=== PATIENT | male | born 1955 | race Caucasian/White ===

== ENCOUNTER 2024-08-09 23:37 | Inpatient (IN) | payer OTHER, SELFPAY ==
[2024-08-09 20:06] VITALS: BP 105/67
--- NOTE | 2024-08-09 20:08 | ED.GENMED ---
History of Present Illness
General
Chief Complaint: Fall
Source: patient
Exam Limitations: none
Time Seen by Provider: 08/09/24 19:58
Nursing documentation reviewed up to this point in time: agreed with
History of Present Illness
History of Present Illness:
Patient is a 68-year-old female brought by EMS for evaluation. EMS reports the patient was drinking all day and fell. called EMS. Patient however tells me he was drinking vodka yesterday and fell yesterday and that he did not drink
pockets today however EMS stated story.
Patient presented by EMS however does not recall that and tells me that his partner dropped him off
He does report that he fell and he believes he fell in the living room. He complains of right-sided neck pain. EMS stated the patient fell in his kitchen. patient's partner reported the patient was drinking vodka all day and fell in the kitchen
today.
Patient denies any headache. Patient denies any nausea or vomiting.
Patient does report he sometimes gets tremors if he does not drink but he denies any history of alcohol withdrawal seizures.
Past History
Past History
ED Past Medical History: GERD, HTN, Hypercholesterolemia and NIDDM
Social History
Tobacco: Non-smoker
Alcohol: Daily
Drug: None
Personal:
Living: with family
Employment: Not employed
Family History
Family History: Other (Noncontributory)
Phy Exam
General Physical Exam
General Presentation: no apparent distress
General Skin: warm and dry
General Habitus: normal
General Mental: alert
General Hydration: appears well hydrated
Cardiovascular Exam
Cardiovascular Exam: regular rate/rhythm, no murmur and normal peripheral pulses
Pulmonary Exam
Pulmonary Exam: lungs clear and no respiratory distress
Neurological Exam
Neurological Exam: alert and oriented x3
Musculoskeletal Exam
Musculoskeletal Exam: other (+ ecchymosis to left shoulder however full rom no head injury no bony midline neck tenderness )
Skin Exam
Skin Exam: normal color and warm/dry
Psychiatric Exam
Psychiatric Exam: normal mood/affect
Course
Orders/Labs/Results
Orders:
Orders
08/09/24 20:05
Alcohol Urgent
Complete Blood Count/With Diff Urgent
Comprehensive Metabolic Panel Urgent
08/09/24 20:09
CT Head W/o Iv Contrast Urgent
Comment:
Reason For Exam: trauma
08/09/24 20:10
CT Cervical Spine W/o Iv Contr Urgent
Comment:
Reason For Exam: trauma
0.9% Sodium Chloride 1000 ml [Nss] 1,000 ml IV BOLUS
08/09/24 20:14
Shoulder, Left, Trauma CR [CR Shoulder, Trauma - Left] Urgent
Comment:
Reason For Exam: trauma
08/09/24 20:37
Shoulder, Right, Trauma [CR Shoulder, Trauma - Right] Urgent
Comment:
Reason For Exam: trauma
08/09/24 21:13
Lorazepam [Ativan] 0.5 mg IV NOW STA
08/09/24 22:29
Lorazepam [Ativan] 1 mg IV NOW STA
08/09/24 23:00
Flush (0.9% Sodium Chloride) [Flush (Nss)] See Dose Instructions IV PER PROTOCOL
08/09/24 23:02
Bladder Scan As Directed
Follow Bladder Retention/Intermittent Cath Algorithm?: Yes
PRN if no void in __ hours: 6
Frequency: Per Retention Algorithm
If Bladder Scan Result >: 400
then:: Straight cath
Straight Cath As Directed
Frequency: Per Retention Algorithm
Additional Instructions: straight cath as needed per acute urinary retention algorithm for 24 hrs
Additional Instructions: for bladder scan greater than 400 mL
08/09/24 23:08
Admit/Transfer Patient As Directed
Co-Sign Provider:
Level of Care: Inpatient admission
Assign to:: Telemetry
Physician / Group: pelon
Diagnosis: alcohol withdrawal
Reason for Telemetry: Other
Other Reason for Telemetry: alcohol withdrawal
Date to Stop Telemetry: 08/11/24
Time to Stop Telemetry: 11:00
Reason for Hospitalization: alcohol withdrawal
Expected length of stay greater than two midnights?: Yes
ELOS- Estimated Length of Stay in days: 3
I certify the patient meets the requirements for IP care: Yes
PRN Pain Medication Management As Directed
May give lesser potent ordered pain med per pt: Yes
preference::
Protocol:: Medication orders for pain may be administered in a
manner that supports deferring to patient preference
when the pt is:
- Requesting an ordered lesser potent pain medication.
Least to most potent pain medications are defined
as: acetaminophen < NSAID < tramadol < opioids
(morphine, oxycodone, hydromorphone).
- Requesting a lesser dose of the same medication IF
ORDERED.
- Requesting a less intrusive route of administration
if both routes are prescribed by the provider (PO <
IV).
08/09/24 23:10
Code Status As Directed
Resuscitation Status: Full Code
08/10/24 01:14
0.9% Sodium Chloride 1000 ml [Nss] 1,000 ml IV 100 mls/hr
0.9% Sodium Chloride [Nss (Preservative Free)] See Protocol IV PRN PRN
Acetaminophen [Tylenol] 650 mg PO Q4HPRN PRN
Bisacodyl [Dulcolax] 10 mg RECTAL [id number] PRN
Dextrose 50%-Water [Dextrose 50% Syringe] 12.5 grams IV [id number] PRN
Docusate W/Senna [Senokot-S] 1 tablet PO BIDPRN PRN
FOLic ACID [Folvite] 1 mg 0.9% Sodium Chloride 50 ml [Nss] 50 ml IV DAILYPRN
Glucagon [GlucaGen] 1 mg IM PRN PRN
Lorazepam [Ativan] 1 mg IV Q1HPRN PRN
Lorazepam [Ativan] 1 mg PO Q2HPRN PRN
Lorazepam [Ativan] 2 mg IV Q1HPRN PRN
Polyethylene Glycol Powder [Miralax] 17 grams PO DAILYPRN PRN
Thiamine Injection 200 mg IV Q8
08/10/24 01:14
Case Management Consult Once
Case Management Consult: Other
Comment: Substance abuse counseling
DIETARY IP CONSULT Routine
Reason for Consult: Nutrition support, possible refeeding guidelines
Activity As Directed
Activity Level: As Tolerated
Bedside Glucose Monitoring As Directed
Frequency: AC&HS
Additional Instructions:: Change to q6h if pt on TPN, tube feeding or not eating
MSAS SCORE As Directed
MSAS Score 0-4: Repeat MSAS every 2 hours until 0-4 for three consecutive assessments, then every 4 hours x 48
hours.
MSAS Score 5-7: For MILD withdrawl symptoms. Repeat MSAS and RASS every 2 hours
MSAS Score 8-11: For MODERATE withdrawal symptoms. Repeat MSAS and RASS every 1 hour. Consider ICU or IMU
level of care.
MSAS Score > 11: For SEVERE withdrawal symptoms. Repeat MSAS and RASS every 1 hour. Notify provider, consider
ICU level of care.
MSAS Additional Instructions: If no improvement or no decrease in score from severe to moderate within 12
hours, consult psychiatry
MSAS Notify Provider: Notify provider if patient requires more than 10 mg of Lorazepam in eight hour period.
Vital Signs As Directed
Frequency: Per unit guidelines
DX Deep Vein Thrombosis Video Routine
08/10/24 01:45
Phenobarbital Sodium [Phenobarbital] 260 mg 0.9% Sodium Chloride 100 ml [Nss] 100 ml IV ONCE
08/10/24 05:32
Urinalysis Routine
Date Specimen was Collected: 08/10/24
Time Specimen was Collected: 05:28
Urine Drug Abuse Screen Routine
Date Specimen was Collected: 08/10/24
Time Specimen was Collected: 05:28
08/10/24 Breakfast
1800 calorie (15 carb) Diabetic
At Your Request: Limited Participation
Does patient need a safe tray?: No
Occupational Therapy Consult [Ot Eval And Treat] IN AM
Physical Therapy Consult [Pt Eval And Treat] IN AM
Activity Level: As Tolerated
08/10/24 07:14
Alcohol Urgent
B-Hydroxybutyrate Urgent
Basic Metabolic Panel IN AM
Complete Blood Count/No Diff IN AM
Ferritin IN AM
GGTP Urgent
Glycohemoglobin (HgbA1c) IN AM
Iron IN AM
Magnesium Urgent
PTT Urgent
Phosphorus Urgent
Prothrombin Time Urgent
Total Iron Binding IN AM
Vitamin B12 IN AM
08/10/24 07:30
Insulin Aspart Corrective Low [Novolog Flexpen-Low Resistance] See Protocol SC AC
08/10/24 08:00
FOLic ACID [Folvite] 1 mg PO DAILY
Heparin 5,000 units SC Q12
Pantoprazole [Protonix] 40 mg PO DAILY
Phenobarbital Sodium [Phenobarbital] 97.5 mg IV TID
08/10/24 18:00
Rosuvastatin Calcium [Crestor] 10 mg PO QPM
08/11/24 06:42
Basic Metabolic Panel IN AM
Complete Blood Count/No Diff IN AM
08/11/24 11:00
DC Protocol for Telemetry ONCE
08/12/24 08:00
Phenobarbital [Luminal] 64.8 mg PO TID
08/12/24 09:56
Basic Metabolic Panel IN AM
Complete Blood Count/No Diff IN AM
08/13/24 06:00
Complete Blood Count/No Diff IN AM
08/13/24 08:00
Thiamine HCl [Vitamin B1] 100 mg PO BID
08/14/24 08:00
Phenobarbital [Luminal] 32.4 mg PO TID
Abnormal Lab Results
08/09/24
20:05
WBC 2.8 L 10^3/uL
(4.8-10.8)
RBC 3.01 L 10^6/uL
(4.70-6.10)
Hgb 10.1 L g/dL
(13.0-18.0)
Hct 29.1 L %
(39.0-52.0)
MCV 96.7 H fL
(80.0-94.0)
MCH 33.6 H pg
(27.0-31.0)
Plt Count 104 L 10^3/uL
(130-400)
Absolute Lymphs (auto) 0.9 L 10^3/uL
(1.2-3.4)
Monocytes % 13.1 H %
(1.7-9.3)
Carbon Dioxide 21 L mmol/L
(22-30)
Creatinine 1.4 H mg/dL
(0.7-1.3)
Glucose 136 H mg/dl
(70-99)
08/09/24 20:05
08/09/24 20:05
Vital Signs
Initial and Last Documented VS:
Initial Vital Signs
Pulse Resp Pulse Ox
78 15 94
08/09/24 19:58 08/09/24 19:58 08/09/24 19:58
Last Documented Vital Signs
Temp Pulse Resp BP Pulse Ox
97.4 F 76 22 157/101 99
08/12/24 07:00 08/12/24 07:00 08/12/24 07:00 08/12/24 07:00 08/12/24 07:00
Shield Operator consulted with Physician
Shield Operator consulted with physician?: Yes ([place] )
MDM/Problems Addressed
MDM/Problems Addressed:
Patient is a 68 yr old male that was brought by EMS. Patient initially stated that he drank yesterday and fell yesterday however EMS reported that his partner stated patient drank today and fell today. Questionable history .
patient's alcohol was found to be 0 and while here patient started to develop tremors. Patient was given Ativan/ fluids. He tells me again that he drank all day yesterday but did not drink today
patient does complain of right sided neck pain however CT of cervical spine is negative head CT is negative. He presents with bruising to the left shoulder but also complains of pain to the right shoulder both shoulders are negative for fracture.
He has no other complaints of pain and no other injuries on exam.
Patient's white count slightly 2.8 no prior lab results hemoglobin mildly low at 10.1 and platelets mildly low at 104,000. Creatinine minimally elevated 1.4(patient was given fluids)
Pt is willing to speak to [facility] however does not want inpatient.
Pt is stable after ativan in no distress. No complaints of nausea vomiting he is awake alert speaking clearly .
after he speaks with [facility] will have patient walk to the bathroom
And reassess .
care of pt signed out to ED attending
Chronic conditions affecting care:
chronic alcohol use
*Radiology
Radiology exam reviewed: radiology read reviewed
*Pulse Oximetry
Oxygen Mode of Delivery: Room air
Patient hypoxic: no
*Critical Care Note
Total Time (30-74mins, 75-104mins- exclusive of procedures): Not Applicable
ED Attending Note
-
Portions of this chart may have been created with voice recognition software.� Occasional wrong word or��sound alike� substitutions may have occurred due to the inherent limitations of voice recognition software.
Discharge Plan
Departure
Patient Disposition: Admit
Date of Disposition: 08/09/24
Time of Disposition: 22:36
Presentation/result/management discussed w/ accepting MD/DO: Hospitalist
Patient with high blood pressure during this ER visit?: No
Condition: Fair
Covid-19: Not Applicable
Discharge Problem:
Alcohol abuse, Contusion
Interventions
Interventions:
*Risk Screen - Suicide Last Done: 08/10/24 01:20
*General Assessment Last Done: 08/09/24 20:13
*Neglect/Abuse Screening Last Done: 08/09/24 20:13
*ED- Fall Risk Assessment Last Done: 08/09/24 20:13
*ED COVID-19 Vaccine History Last Done: 08/10/24 01:20
*Nursing Disposition Last Done: 08/10/24 00:55
ED-Musculoskeletal Assessment Last Done: 08/09/24 20:00
ED- Neurological Assessment Last Done: 08/09/24 20:00
ED-Skin Assessment Last Done: 08/09/24 20:00
Discharge Date and Time
Discharge Date/Time: 08/10/24 01:10
[2024-08-09 20:12] VITALS: BMI 25.7
[2024-08-09 20:12] LABS: Hematocrit 29.1 % (39.0-52.0); Hemoglobin 10.1 g/dL (13.0-18.0); Mean Corp Hgb Conc. 34.7 g/dL (33.0-37.0); Mean Corpuscular Volume 96.7 fL (80.0-94.0); Nucleated Red Blood Cells % 0 % (-); Platelet Count 104 10^3/uL (130-400); Red Cell Dist. Width 12.9 % (11.5-14.5)
[2024-08-09 20:34] LABS: ALT (SGPT) 37 U/L (0-50); AST (SGOT) 45 U/L (17-59); Albumin 4.0 g/dl (3.5-5.0); Alkaline Phosphatase 90 U/L (38-126); Blood Urea Nitrogen 20 mg/dl (9-20); Calcium 8.9 mg/dl (8.4-10.2); Carbon Dioxide 21 mmol/L (22-30); Chloride 103 mmol/L (98-107); Estimated Creatinine Clearance 47 ml/min; Glucose 136 mg/dl (70-99); Potassium 4.5 mmol/L (3.5-5.1); Sodium 136 mmol/L (135-145); Total Protein 6.4 g/dl (6.3-8.2); eGFR 55.43
[2024-08-09] MEDS: NSS 1000 IV (21:04)
[2024-08-09 21:06] VITALS: BP 115/67
[2024-08-09] MEDS: ATIVAN 0.5 MG IV (21:18)
[2024-08-09 22:00] VITALS: BP 111/82
[2024-08-09 22:11] VITALS: BP 119/96
--- NOTE | 2024-08-09 22:41 | HPS.HSE ---
Addendum entered and electronically signed by Arnold Amaya DO 08/09/24 23:31:
Patient seen and examined independently. Agree with findings and plan as set forth by LUCA Rueda.
Patient is a 68y M with PMH significant for hypertension, DM-II and alcohol use disorder who presents to ED for evaluation s/p fall at home. Patient states that he has been dizzy / unsteady on his feet and had a fall at home two days ago. He
denies head injury. He denies any significant pain. Patient notes that he drinks 1/2 bottle of vodka daily on average. His removed all the alcohol from the house two days ago and he has had none since that time. He complains today of
feeling very anxious and tremulous. He has prior history of withdrawal symptoms. No prior h/o seizures.
Ass:
Alcohol Withdrawal
Alcohol Use Disorder
Fall at Home
Pancytopenia
Benign Hypertension
DM-II
GERD
Plan:
Admit for further evaluation and treatment.
Phenobarbital + MSAS protocol.
IVF support, thiamine, folate, etc.
Follow for clinical improvement.
Continue usual home medications.
Monitor cell counts - consider outpatient Hematology evaluation for pancytopenia.
History of Hep C - apparently self-cleared. (Positive on Abs screening but negative viral load per patient).
Original Note:
Family Physician
-
Family Physician: Katie Hancock
Chief Complaint
-
alcohol abuse
fall
History of Present Illness
68 year old with PMH for GED, HTN, HLD, Type 2 Dm presented to us with fall. patient stated multiple falls due to unsteadiness. patient stated off balance. patient stated his fall was two days ago. denied hitting head on the floor. patient stated he
is dizzy as well. patient has generalized body ache. denied DALTON. denied fever, chills, chest pain, sob. denied abdominal pain,n,v,d. denied hematuria. patient stated, he is having trouble voiding for past few days.
he drinks half a bottle vodka daily. at present he is concern about his shakiness. patient his last alcohol was two days ago.
Medical History
Past Medical History
Past Medical History: Reports Other
Additional Past Medical History:
type 2 DM
alcoholic liiver disease
hepatitis C
Past Surgical History: Reports Other
Additional Past Surgical History:
tonsillectomy
Social History
Tobacco: Former Smoker
Alcohol: Daily
Drug: Marijuana
Personal: Partner
Living: With Family
Family History
Family History: Not pertinent
Allergies / Home Medications
Allergies reflects when Allergies were last updated in [facility].
Home Medications with original date entered in [facility]
Allergy/Medication List:
Allergies
Allergy/AdvReac Type Severity Reaction Status Date / Time
Penicillins Allergy Swelling Verified 08/10/22 20:30
Home Medications
metformin 1,000 mg tablet 1,000 tab PO BID 11/30/20
pantoprazole 40 mg tablet,delayed release 40 mg PO DAILY 11/30/20
rosuvastatin 10 mg tablet 10 mg PO QPM 11/30/20
empagliflozin 10 mg tablet (Jardiance) 10 mg PO DAILY 08/09/24
Review of Systems
-
Constitutional: Reports No Symptoms
EENT: Reports No Symptoms
Respiratory: Reports No Symptoms
Cardiac: Reports No Symptoms
Abdomen/GI: Reports No Symptoms
: Reports No Symptoms
Musculoskeletal: Reports No Symptoms
Skin: Reports No Symptoms
Neurological: Reports Dizzy
Endocrine: Reports No Symptoms
Hematologic/Lymphatic: Reports No Symptoms
Psych: Reports No Symptoms
Physical Exam
Vital Signs
Vital Signs
Temp Pulse Resp BP Pulse Ox
98.6 F 59 15 119/96 96
08/09/24 20:12 08/09/24 22:30 08/09/24 22:30 08/09/24 22:11 08/09/24 21:15
Physical Exam
General: Well Developed, Well Nourished and No Apparent Distress
HEENT: NormoCephalic, Moist mucous membranes and Atraumatic
Respiratory: Clear
Cardiac: S1/S2 and Regular Rhythm; No Murmur or Rub
GI: Soft, Non Tender, Non Distended and Normal Bowel Sounds; No Organomegaly
Rectal: Deferred by Provider
Musculoskeletal: No Clubbing, No Cyanosis and No Edema
Skin: No Rash
Neuro: Nonfocal/grossly intact and Tremors
Laboratory Results
-
08/09/24 20:05
08/09/24 20:05
Laboratory Results
Total Bilirubin 0.9 mg/dl (0.2-1.3) 08/09/24 20:05
AST 45 U/L (17-59) 08/09/24 20:05
ALT 37 U/L (0-50) 08/09/24 20:05
Alkaline Phosphatase 90 U/L (38-126) 08/09/24 20:05
Data Reviewed
-
Diagnostic Radiology: Report Reviewed by me
CT Scan: Report Reviewed by me
Impression/Plan
-
#alcohol use disorder
-protocol initiated
-monitor MSAS score
-initiated phenobarb
#fall likely mechanical
-shoulder x ray with no acute fracture
-cervical spine CT negative
-head CT negative
-PT/OT consulted
#pancytopenia
-wbc 2.8, hgb 10.1, platelet 104
#acute kidney injury likely dehydration
-cr 1.4
-fluids continued
-BMP in am
#type 2 Dm
-sliding scale
-CHO diet
-hold metformin and Jardiance due to ANTONIO
#GERD
-PPI continued
#HLD
-statin continued
#hxt for alcoholic liver disease
#hepatitis C
#DVT Prophylaxis
-heparins q
#CODE status
-full code
[2024-08-09 23:00] VITALS: BP 123/74
[2024-08-09] MEDS: ATIVAN 1 MG IV (23:05)
[2024-08-10] VITALS (9 sets, daily range): BP systolic 107–140; BP diastolic 63–80; PULSE 64; BMI 23.6
--- NOTE | 2024-08-10 00:50 | EDRN ---
[facility] consulted for patient. Evaluation performed with patient via phone and patient does not want outpatient services at this time
[2024-08-10] MEDS: PHENOBARBITAL 104 MG IV (02:11)
[2024-08-10] MEDS: NSS 1000 IV ×3 (02:11→22:59)
[2024-08-10] MEDS: THIAMINE INJECTION 200 MG IV ×4 (02:13→23:00)
[2024-08-10 05:44] LABS: Urine Character Clear (Clear)
[2024-08-10 06:06] LABS: Urine Red Blood Cell None Seen /HPF (0-2); Urine Squamous Cell 0-2 /LPF (Few)
[2024-08-10] MEDS: PROTONIX 40 MG PO (08:09)
[2024-08-10] MEDS: FOLVITE 1 MG PO (08:09)
[2024-08-10] MEDS: HEPARIN 5000 UNITS SC ×2 (08:09→19:21)
[2024-08-10] MEDS: PHENOBARBITAL 97.5 MG IV ×3 (08:11→21:07)
[2024-08-10 08:17] LABS: APTT 32.2 Sec (23.4-35.0); INR 1.05; PT 14.0 Sec (11.4-14.6)
[2024-08-10 08:19] LABS: Glucose - Point of Care 89 mg/dl (70-99)
[2024-08-10 08:29] LABS: Hematocrit 28.9 % (39.0-52.0); Hemoglobin 10.1 g/dL (13.0-18.0); Mean Corp Hgb Conc. 34.9 g/dL (33.0-37.0); Mean Corpuscular Volume 96.7 fL (80.0-94.0); Platelet Count 93 10^3/uL (130-400); Red Cell Dist. Width 13.1 % (11.5-14.5)
[2024-08-10 08:39] LABS: Magnesium 1.4 mg/dl (1.6-2.3)
[2024-08-10 08:40] LABS: Glycohemoglobin (HgbA1c) 5.1 % (4.0-5.6)
[2024-08-10 08:54] LABS: Blood Urea Nitrogen 16 mg/dl (9-20); Calcium 8.3 mg/dl (8.4-10.2); Carbon Dioxide 25 mmol/L (22-30); Chloride 107 mmol/L (98-107); Estimated Creatinine Clearance 64 ml/min; Glucose 82 mg/dl (70-99); Iron 112 ug/dl (49-181); Potassium 3.7 mmol/L (3.5-5.1); Sodium 137 mmol/L (135-145); eGFR > 60.00
[2024-08-10 09:05] LABS: Total Iron Binding Capacity 254 ug/dl (261-462)
[2024-08-10 09:13] LABS: GGTP 207 U/L (15-73)
[2024-08-10 09:33] LABS: Ferritin 148.0 ng/ml (17.9-464.0)
[2024-08-10 09:48] LABS: Vitamin B12 221 pg/ml (239-931)
--- NOTE | 2024-08-10 10:05 | CM ---
wind operations manager reviewed patient's chart and met with patient and patient reports that he lives with his partner in a 1 story home with 21 steps to enter, patient is independent with adl's and ambulation, watch case polisher received a consult for substance
abuse counseling and reviewed with patient however patient has declined a referral to [facility].
PCP: Dr. Hancock
Pharmacy; [facility] in [place]
Plan; Home when stable. No needs.
[2024-08-10] MEDS: MAGNESIUM SULFATE 50 IV (11:03)
[2024-08-10 12:52] LABS: Glucose - Point of Care 97 mg/dl (70-99)
--- NOTE | 2024-08-10 14:52 | W.PN.HOSP.TC ---
Today's Communication/Plan
-
Alcohol withdrawal protocol
Assessment / Plan
Assessment / Plan
68-year-old with a fall, dizziness and unsteady gait. He drinks half a bottle of vodka daily
X-ray of the shoulder-no fracture or dislocation
CT of the C-spine-no evidence of posttraumatic abnormality. Vacuum disc phenomenon at C5-C6 and C6-C7.. Disc osteophyte complexes/arthrosis
Head CT-no acute intracranial abnormality. Chronic small vessel disease
Awake and alert
Aware that he is here for his 'drinking problem'
Cardiovascular system S1-S2 appreciated
Chest clear to auscultation
Abdomen soft and nontender
# Alcohol abuse/alcohol withdrawal/alcohol use disorder
Fall at home likely related to above or alcoholic neuropathy, acute kidney injury
Continue phenobarbital cut back on the course, MSAS 2
Thiamine replacement
MSAS protocol with Ativan as needed
Does not want rehab.
Declined [facility].
# Acute kidney injury-better with IV fluids
# Hypomagnesemia-replace IV
# Vitamin B 2 deficiency-replace described contributing to pancytopenia
# Diabetes--Hold Jardiance, metformin, Continue Accu-Cheks and sliding scale coverage
# Hyperlipidemia-continue statin
# Pancytopenia likely secondary to alcohol abuse. This could be contributing to pancytopenia. If not improving needs hematology evaluation as outpatient
# GERD-continue PPI
# History of hepatitis C-self cleared per patient?
# Marijuana use
# Ex-smoker
# DVT prophylaxis-subcutaneous heparin
# Full code
Discussed with nursing
No number for family or lithography contact worker on the chart
Part of this note was created using voice recognition system. Occasional wrong word or��sound alike� substitutions may have inadvertently occurred due to the inherent limitations of voice recognition software. If noted kindly bring it to my
attention for correction.
Anticipated Discharge: 24 - 48 hours
Subjective/Interval History
-
Date of Service: August 10, 2024
Objective Data
-
Labs:
Laboratory Results
08/10/24
07:14
WBC 2.4 L*
Hgb 10.1 L
Hct 28.9 L
Plt Count 93 L
PT 14.0
INR 1.05
APTT 32.2
Sodium 137
Potassium 3.7
Chloride 107
Carbon Dioxide 25
BUN 16
Creatinine 1.1
Glucose 82
Calcium 8.3 L
Vital Signs:
Vital Signs
Temp Pulse Resp BP Pulse Ox
97.8 F 70 18 107/63 99
08/10/24 11:45 08/10/24 11:45 08/10/24 11:45 08/10/24 11:45 08/10/24 11:45
I&O
08/09/24 08/10/24 08/11/24
06:59 06:59 06:59
Output Total 1075 / 1075
Balance -1075 / -1075
[2024-08-10] MEDS: CYANOCOBALAMIN 1000 MCG IM (15:21)
[2024-08-10 16:30] LABS: Glucose - Point of Care 92 mg/dl (70-99)
[2024-08-10] MEDS: CRESTOR 10 MG PO (17:17)
[2024-08-10 21:52] LABS: Glucose - Point of Care 119 mg/dl (70-99)
[2024-08-11 02:58] VITALS: BP 129/79
[2024-08-11 07:12] LABS: Hematocrit 31.4 % (39.0-52.0); Hemoglobin 11.0 g/dL (13.0-18.0); Mean Corp Hgb Conc. 35.0 g/dL (33.0-37.0); Mean Corpuscular Volume 95.2 fL (80.0-94.0); Platelet Count 105 10^3/uL (130-400); Red Cell Dist. Width 12.7 % (11.5-14.5)
[2024-08-11 07:36] LABS: Blood Urea Nitrogen 13 mg/dl (9-20); Calcium 8.1 mg/dl (8.4-10.2); Carbon Dioxide 24 mmol/L (22-30); Chloride 109 mmol/L (98-107); Estimated Creatinine Clearance 100 ml/min; Glucose 84 mg/dl (70-99); Magnesium 1.6 mg/dl (1.6-2.3); Potassium 4.5 mmol/L (3.5-5.1); Sodium 139 mmol/L (135-145); eGFR > 60.00
[2024-08-11 08:19] LABS: Glucose - Point of Care 93 mg/dl (70-99)
[2024-08-11 08:25] VITALS: BP 128/86
[2024-08-11] MEDS: NSS 1000 IV (09:16)
[2024-08-11] MEDS: PROTONIX 40 MG PO (09:17)
[2024-08-11] MEDS: HEPARIN 5000 UNITS SC ×2 (09:17→21:44)
[2024-08-11] MEDS: LUMINAL 64.8 MG PO ×3 (09:18→21:44)
[2024-08-11] MEDS: THIAMINE INJECTION 200 MG IV ×2 (09:19→16:39)
[2024-08-11] MEDS: FOLVITE 1 MG PO (09:19)
[2024-08-11] MEDS: CYANOCOBALAMIN 1000 MCG IM (09:20)
[2024-08-11] MEDS: MAGNESIUM OXIDE 500 MG PO (09:39)
[2024-08-11 11:43] VITALS: BP 140/80
[2024-08-11 12:02] LABS: Glucose - Point of Care 128 mg/dl (70-99)
--- NOTE | 2024-08-11 13:54 | CM ---
Home when stable, patient has declined the need for [facility] referral.
Plan; Home when stable, patient spoke with [facility] but declines assistance.
--- NOTE | 2024-08-11 14:28 | W.PN.HOSP.TC ---
Today's Communication/Plan
-
Complete pheno taper and discharge
Assessment / Plan
Assessment / Plan
68-year-old with a fall, dizziness and unsteady gait. He drinks half a bottle of vodka daily
X-ray of the shoulder-no fracture or dislocation
CT of the C-spine-no evidence of posttraumatic abnormality. Vacuum disc phenomenon at C5-C6 and C6-C7.. Disc osteophyte complexes/arthrosis
Head CT-no acute intracranial abnormality. Chronic small vessel disease
Awake and alert
Aware that he is here for his 'drinking problem'
Cardiovascular system S1-S2 appreciated
Chest clear to auscultation
Abdomen soft and nontender
# Alcohol abuse/alcohol withdrawal/alcohol use disorder
Fall at home likely related to above or alcoholic neuropathy, acute kidney injury
Continue phenobarbital cut back on the course, MSAS 2
Thiamine replacement
MSAS protocol with Ativan as needed
Does not want rehab.
Declined [facility].
# Acute kidney injury-better with IV fluids. Stop IV fluids
# Hypomagnesemia-replace
# Vitamin B 2 deficiency-replace described contributing to pancytopenia
# Diabetes--Hold Jardiance, metformin, Continue Accu-Cheks and sliding scale coverage
# Hyperlipidemia-continue statin
# Pancytopenia likely secondary to alcohol abuse. Improving. Replace B12
# GERD-continue PPI
# History of hepatitis C-self cleared per patient?
# Marijuana use
# Ex-smoker
# DVT prophylaxis-subcutaneous heparin
# Full code
Discussed with nursing
No number for family or contact centre supervisor on the chart
Discussed with case management
Part of this note was created using voice recognition system. Occasional wrong word or��sound alike� substitutions may have inadvertently occurred due to the inherent limitations of voice recognition software. If noted kindly bring it to my
attention for correction.
Anticipated Discharge: Within 24 hours
Subjective/Interval History
-
Date of Service: August 11, 2024
Objective Data
-
Labs:
Laboratory Results
08/11/24
06:42
WBC 2.6 L
Hgb 11.0 L
Hct 31.4 L
Plt Count 105 L
Sodium 139
Potassium 4.5
Chloride 109 H
Carbon Dioxide 24
BUN 13
Creatinine 0.7
Glucose 84
Calcium 8.1 L
Vital Signs:
Vital Signs
Temp Pulse Resp BP Pulse Ox
98.3 F 69 18 140/80 98
08/11/24 11:43 08/11/24 11:43 08/11/24 11:43 08/11/24 11:43 08/11/24 11:43
I&O
08/10/24 08/11/24 08/12/24
06:59 06:59 06:59
Intake Total 480 / 480
Output Total 1375 / 1375 950 / 950 350 / 350
Balance -1375 / -1375 -470 / -470 -350 / -350
[2024-08-11 16:16] VITALS: BP 143/80
[2024-08-11 16:34] LABS: Vitamin D, 25-OH*** 43.4 ng/mL (30-80)
[2024-08-11] MEDS: CRESTOR 10 MG PO (16:39)
[2024-08-11 16:58] LABS: Glucose - Point of Care 122 mg/dl (70-99)
[2024-08-11 19:45] VITALS: BP 143/86
[2024-08-11 21:46] LABS: Glucose - Point of Care 87 mg/dl (70-99)
[2024-08-11 23:11] VITALS: BP 156/84
[2024-08-11] MEDS: THIAMINE INJECTION IV (23:57)
[2024-08-12 03:26] VITALS: BP 144/79
[2024-08-12 07:00] VITALS: BP 157/101
[2024-08-12 08:04] LABS: Glucose - Point of Care 77 mg/dl (70-99)
[2024-08-12] MEDS: CYANOCOBALAMIN 1000 MCG IM (08:23)
[2024-08-12] MEDS: THIAMINE INJECTION IV ×3 (08:23→15:35)
[2024-08-12] MEDS: HEPARIN 5000 UNITS SC (08:24)
[2024-08-12] MEDS: MAGNESIUM OXIDE 500 MG PO (08:24)
[2024-08-12] MEDS: PROTONIX 40 MG PO (08:24)
[2024-08-12] MEDS: LUMINAL 32.4 MG PO ×2 (08:24→15:35)
[2024-08-12] MEDS: FOLVITE 1 MG PO (08:24)
[2024-08-12 10:12] LABS: Hematocrit 37.2 % (39.0-52.0); Hemoglobin 13.0 g/dL (13.0-18.0); Mean Corp Hgb Conc. 34.9 g/dL (33.0-37.0); Mean Corpuscular Volume 93.7 fL (80.0-94.0); Platelet Count 154 10^3/uL (130-400); Red Cell Dist. Width 12.8 % (11.5-14.5)
--- NOTE | 2024-08-12 11:19 | CM ---
Addendum entered by Laurence Baez 08/12/24 15:42:
Patient is for discharge to home today, patient refuses skilled placement and also refuses visiting nurses, partner to transport.
Original Note:
auto fleet manager reached out to [facility] and they will follow up with patient and offer counseling supports and treatment options for patient if patient is agreeable.
Plan; Home with partner, [facility] to reach out to patient again today.
[2024-08-12] MEDS: TYLENOL 650 MG PO (11:24)
[2024-08-12 11:28] LABS: Blood Urea Nitrogen 9 mg/dl (9-20); Calcium 8.4 mg/dl (8.4-10.2); Carbon Dioxide 21 mmol/L (22-30); Chloride 107 mmol/L (98-107); Estimated Creatinine Clearance 88 ml/min; Glucose 177 mg/dl (70-99); Potassium 3.7 mmol/L (3.5-5.1); Sodium 138 mmol/L (135-145); eGFR > 60.00
[2024-08-12 12:06] LABS: Glucose - Point of Care 114 mg/dl (70-99)
--- NOTE | 2024-08-12 14:10 | W.PN.HOSP.TC ---
Addendum entered and electronically signed by Jassi Gordon MD 08/12/24 15:33:
Physical therapy recommended rehab patient absolutely refusing to go to SNF
He is aware about risks for falls still opting to go home
Case management will discuss with patient's family/partner
VNA will be arranged
Addendum entered and electronically signed by Jassi Gordon MD 08/12/24 14:22:
More than 30 minutes spent in discharge including
Final examination of the patient
Summarizing hospital stay
Instructions for continuing care to all relevant caregivers
Preparation of discharge records, prescriptions, and referral forms
Total time spent (in minutes): 32 min
Original Note:
Today's Communication/Plan
-
Discharge
Assessment / Plan
Assessment / Plan
68-year-old with a fall, dizziness and unsteady gait. He drinks half a bottle of vodka daily
X-ray of the shoulder-no fracture or dislocation
CT of the C-spine-no evidence of posttraumatic abnormality. Vacuum disc phenomenon at C5-C6 and C6-C7.. Disc osteophyte complexes/arthrosis
Head CT-no acute intracranial abnormality. Chronic small vessel disease
Awake and alert
wants to go home
Cardiovascular system S1-S2 appreciated
Chest clear to auscultation
Abdomen soft and nontender
# Alcohol abuse/alcohol withdrawal/alcohol use disorder
Fall at home likely related to above or alcoholic neuropathy, acute kidney injury
Continue phenobarbital cut back on the course, MSAS 0
Thiamine replacement
MSAS protocol with Ativan as needed
Does not want rehab.
Declined [facility].
# Acute kidney injury-Resolved
# Hypomagnesemia-replaced
# Vitamin B 2 deficiency-replace described contributing to pancytopenia
# Diabetes--HbA1C 5.1 Stop Jardiance, metformin . Sugars are stable.
# Hyperlipidemia-continue statin
# Pancytopenia likely secondary to alcohol abuse. Improving. Replace B12
# GERD-continue PPI
# History of hepatitis C-self cleared per patient?
# Marijuana use
# Ex-smoker
# DVT prophylaxis-subcutaneous heparin
# Full code
Discussed with nursing
No number for family or contact lens technician on the chart, pt says no need to tall to any one else. His partner is aware.
Discussed with case management
Part of this note was created using voice recognition system. Occasional wrong word or��sound alike� substitutions may have inadvertently occurred due to the inherent limitations of voice recognition software. If noted kindly bring it to my
attention for correction.
Anticipated Discharge: Today
Subjective/Interval History
-
Date of Service: August 12, 2024
Objective Data
-
Labs:
Laboratory Results
08/12/24
09:56
WBC 4.7 L
Hgb 13.0
Hct 37.2 L
Plt Count 154 D
Sodium 138
Potassium 3.7
Chloride 107
Carbon Dioxide 21 L
BUN 9
Creatinine 0.8
Glucose 177 H
Calcium 8.4
Vital Signs:
Vital Signs
Temp Pulse Resp BP Pulse Ox
97.4 F 76 22 157/101 99
08/12/24 07:00 08/12/24 07:00 08/12/24 07:00 08/12/24 07:00 08/12/24 07:00
I&O
08/11/24 08/12/24 08/13/24
06:59 06:59 06:59
Intake Total 480 / 480 2160 / 2160 240 / 240
Output Total 950 / 950 350 / 350 875 / 875
Balance -470 / -470 1810 / 1810 -635 / -635
--- NOTE | 2024-08-12 14:21 | W.DS.TRANS ---
Addendum entered and electronically signed by Jassi Gordon MD 08/12/24 15:01:
Dictation- [id number]
Original Note:
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
-
Discharge Instructions:
Discharge Diagnosis/Procedures Alcohol abuse, withdrawal
Acute kidney urine
Hypomagnesemia negative
Vitamin B12 deficiency
Hyperlipidemia
Pancytopenia-improving
GERD
Diabetes
Diet Diabetic, Carb Controlled
Activity As tolerated
Driving Restrictions As prior to admission
Instructions:
Stand-Alone Forms:
Changes to Home Medications: Yes
Discharge Medications:
DC Medications w/original date entered in [employer]
pantoprazole 40 mg tablet,delayed release 40 mg PO DAILY Gastrointestinal Issue 11/30/20
rosuvastatin 10 mg tablet 10 mg PO QPM High Cholesterol 11/30/20
cyanocobalamin (vitamin B-12) 1,000 mcg capsule 1,000 mcg PO DAILY B 12 Def #30 caps 08/12/24
magnesium oxide 500 mg PO DAILY Electrolyte Repletion #0 tabs 08/12/24
thiamine mononitrate (vit B1) 100 mg tablet 100 mg PO BID Supplement #30 tabs 08/12/24
Home Medication Changes
Metformin and Jardiance stopped
Magnesium, thiamine, B12 new
Pending Results: No
[2024-08-12 15:00] VITALS: BP 166/98
== END 2024-08-12 18:43 | disposition home or self-care (01) | DRG 897 ==
LOC: 4 WEST ACU 23:37
PROVIDERS: Nurse Practitioner; Registered Nurse; ADMITTING PHYSICIAN Hospitalist; ATTENDING PHYSICIAN Hospitalist; EMERGENCY PHYSICIAN Emergency Medicine; FAMILY PHYSICIAN Family Medicine
DX: F10.139 Alcohol abuse with withdrawal, unspecified (principal); D61.818 Other pancytopenia; N17.9 Acute kidney failure, unspecified; S40.012A Contusion of left shoulder, initial encounter; W19.XXXA Unspecified fall, initial encounter; I10 Essential (primary) hypertension; E11.9 Type 2 diabetes mellitus without complications; K21.9 Gastro-esophageal reflux disease without esophagitis; E78.00 Pure hypercholesterolemia, unspecified; E86.0 Dehydration; K70.9 Alcoholic liver disease, unspecified; E53.8 Deficiency of other specified B group vitamins; E83.42 Hypomagnesemia; F12.90 Cannabis use, unspecified, uncomplicated; Z79.899 Other long term (current) drug therapy; Z87.891 Personal history of nicotine dependence; Z86.19 Personal history of other infectious and parasitic diseases
CPT/HCPCS: 70450; 72125; 73030; 80048; 80053; 80306; 80307; 81003; 81015; 82010; 82077; 82306; 82607; 82728; 82962; 82977; 83036; 83540; 83550; 83735; 84100; 85025; 85027; 85610; 85730; 96361; 96374; 96376; 97163; 97166; 97530; 99285

== ENCOUNTER 2024-09-19 03:27 | Observation (INO) | payer OTHER, SELFPAY ==
[2024-09-18 21:03] VITALS: BP 160/85
[2024-09-18 21:04] VITALS: BP 160/85
--- NOTE | 2024-09-18 21:31 | ED.GENMED ---
History of Present Illness
<Catherine Acosta PA-C - Last Filed: 09/19/24 02:55>
General
Chief Complaint: Overdose Unintentional
Source: patient
Exam Limitations: none
Time Seen by Provider: 09/18/24 21:19
History of Present Illness
History of Present Illness:
68yoM with a history of alcohol abuse (last drink reported to be 5 weeks ago), hyperlipidemia, type 2 diabetes presenting via EMS for evaluation after his partner called 911. Patient is a poor historian and is unable to tell me exactly why he is
here. He reports being on the ground today and having trouble getting up. He is unsure why he was on the ground and states he may have fallen but this is unclear. He has no complaints at this time. He denies any chest pain, shortness of breath,
vomiting, diarrhea. He was recently admitted from 08/09-08/12/24 for alcohol withdrawal. EMS reported that patient had a THC edible tonight but he states the last one he took was yesterday.
Past History
<Catherine Acosta PA-C - Last Filed: 09/19/24 02:55>
Past History
ED Past Medical History: GERD, HTN, Hypercholesterolemia and NIDDM
Social History
Tobacco: Non-smoker
Alcohol: Daily
Drug: None
Personal:
Living: with family
Employment: Not employed
Family History
Family History: Other (Noncontributory)
Phy Exam
<Catherine Acosta PA-C - Last Filed: 09/19/24 02:55>
General Physical Exam
General Presentation: well appearing
General Skin: warm and dry
General Habitus: normal
General Mental: alert
ENT Exam
ENT Exam: normocephalic and other (No external signs of head trauma)
Eye Exam
Eye Exam: PERRL
Cardiovascular Exam
Cardiovascular Exam: regular rate/rhythm
Pulmonary Exam
Pulmonary Exam: lungs clear, no respiratory distress, no rales, no crackles, no rhonchi and no wheezing
Neurological Exam
Neurological Exam: alert and other (Oriented to person and place. Not oriented to time.)
Skin Exam
Skin Exam: normal color and warm/dry
Psychiatric Exam
Psychiatric Exam: normal mood/affect
Course
<Catherine Acosta PA-C - Last Filed: 09/19/24 02:55>
Orders/Labs/Results
Orders:
Orders
09/18/24 21:34
Electrocardiogram (*1) Urgent
Reason for Study: Fatigue / Weakness
CT Head W/o Iv Contrast Urgent
Comment:
Reason For Exam: found on ground
Bladder Scan- Treatment ONCE
EKG- Treatment ONCE
09/18/24 21:35
CT Cervical Spine W/o Iv Contr Urgent
Comment:
Reason For Exam: found on ground
Cardiac Monitoring- Treatment ONCE
09/18/24 21:41
Bladder Scan- Treatment ONCE
09/18/24 21:43
Alcohol Urgent
Complete Blood Count/With Diff Urgent
Comprehensive Metabolic Panel Urgent
Magnesium Urgent
Total CK [Creatine Phosphokinase] Urgent
Troponin I Urgent
Urinalysis Reflex To Culture Urgent
Date Specimen was Collected: 09/18/24
Time Specimen was Collected: 21:37
Urine Microscopic Reflex Cult Urgent
Abnormal Lab Results
09/18/24
21:43
RBC 3.92 L 10^6/uL
(4.70-6.10)
Hgb 12.4 L g/dL
(13.0-18.0)
Hct 35.3 L %
(39.0-52.0)
MCH 31.6 H pg
(27.0-31.0)
Neutrophils % 75.5 H %
(42.2-75.2)
Lymphocytes % 16.6 L %
(20.5-51.1)
Glucose 108 H mg/dl
(70-99)
Creatine Kinase 197 H U/L
(55-170)
Urine Bacteria (Reflex) Few A
(Negative)
Urine Albumin (Reflex) 2+ A
(Neg - Trace)
09/18/24 21:43
09/18/24 21:43
Vital Signs
Initial and Last Documented VS:
Initial Vital Signs
BP
160/85
09/18/24 21:03
Last Documented Vital Signs
Temp Pulse Resp BP Pulse Ox
98.1 F 79 18 157/108 96
09/18/24 21:04 09/19/24 00:00 09/19/24 00:00 09/18/24 23:34 09/18/24 21:35
<Presley Man, DO - Last Filed: 09/18/24 22:24>
Orders/Labs/Results
Orders:
Orders
09/18/24 21:34
Electrocardiogram (*1) Urgent
Reason for Study: Fatigue / Weakness
CT Head W/o Iv Contrast Urgent
Comment:
Reason For Exam: found on ground
Bladder Scan- Treatment ONCE
EKG- Treatment ONCE
09/18/24 21:35
CT Cervical Spine W/o Iv Contr Urgent
Comment:
Reason For Exam: found on ground
Cardiac Monitoring- Treatment ONCE
09/18/24 21:41
Bladder Scan- Treatment ONCE
09/18/24 21:43
Alcohol Urgent
Complete Blood Count/With Diff Urgent
Comprehensive Metabolic Panel Urgent
Magnesium Urgent
Total CK [Creatine Phosphokinase] Urgent
Troponin I Urgent
Urinalysis Reflex To Culture Urgent
Date Specimen was Collected: 09/18/24
Time Specimen was Collected: 21:37
Urine Microscopic Reflex Cult Urgent
Abnormal Lab Results
09/18/24
21:43
RBC 3.92 L 10^6/uL
(4.70-6.10)
Hgb 12.4 L g/dL
(13.0-18.0)
Hct 35.3 L %
(39.0-52.0)
MCH 31.6 H pg
(27.0-31.0)
Neutrophils % 75.5 H %
(42.2-75.2)
Lymphocytes % 16.6 L %
(20.5-51.1)
Glucose 108 H mg/dl
(70-99)
Creatine Kinase 197 H U/L
(55-170)
Urine Bacteria (Reflex) Few A
(Negative)
Urine Albumin (Reflex) 2+ A
(Neg - Trace)
09/18/24 21:43
09/18/24 21:43
Vital Signs
Initial and Last Documented VS:
Initial Vital Signs
BP
160/85
09/18/24 21:03
Last Documented Vital Signs
Temp Pulse Resp BP Pulse Ox
98.1 F 79 18 157/108 96
09/18/24 21:04 09/19/24 00:00 09/19/24 00:00 09/18/24 23:34 09/18/24 21:35
<Catherine Acosta PA-C - Last Filed: 09/19/24 02:55>
MDM/Problems Addressed
Differential Diagnosis Includes:
68yoM here after significant other called EMS. Patient very poor historian and unable to tell me why he is here. Does admit to being on the floor and having trouble getting up but unable to give further details. Recent hospitalization for alcohol
withdrawal but he denies recent alcohol use. Last used THC edible yesterday. He is hypertensive with otherwise stable vitals. He is oriented to person/place but not to time. Nursing reports patient had significant difficulty ambulating to bathroom.
Differential diagnosis includes but is not limited to: Alcohol/drug use, fall, syncope
Initial ED plan: Attempted to get in contact with patient's significant other. Patient does not have a phone with him. Ray provided a phone number which was called several times and was busy each time. Will check cardiac labs, magnesium, CK,
EtOH, UA, and CT head/cervical spine.
<Catherine Acosta PA-C - Last Filed: 09/19/24 02:55>
*Pulse Oximetry
SaO2: 96
Oxygen Mode of Delivery: Room air
Patient hypoxic: no (100%)
*EKG
Interpreted by ED Provider?: Yes
EKG Intrepretation Date: 09/18/24
Heart Rate: 77
Rate: normal
Rhythm: sinus
[place]: normal axis
Interval: long QT (493)
QRS Pattern: normal QRS
Ischemia: no ischemia
*Critical Care Note
Total Time (30-74mins, 75-104mins- exclusive of procedures): Not Applicable
<Catherine Acosta PA-C - Last Filed: 09/19/24 02:55>
Update Note
Update Note:
Labs overall unremarkable and alcohol is undetectable. Imaging negative for traumatic injuries. Patient frequently using the bathroom throughout ED stay. He complains of rectal pressure and feeling of incomplete voiding. Rectal exam was
performed and fecal impaction noted. Attempted bedside disimpaction which patient did not tolerate very well. An enema was ordered although patient able to have a large BM spontaneously. Patient does appear improved since arrival to the ED and is
much more alert. He is requiring a walker for ambulation which is new for him. I am still unable to get in contact with his significant other and no safe discharge plan in place. Will admit for further management.
ED Attending Note
<Catherine Acosta PA-C - Last Filed: 09/19/24 02:55>
-
Portions of this chart may have been created with voice recognition software.� Occasional wrong word or��sound alike� substitutions may have occurred due to the inherent limitations of voice recognition software.
<Presley Man DO - Last Filed: 09/18/24 22:24>
ED Attending Note
Patient seen and examined by attending physician: Yes
I performed the substantive portion of visit, reviewed & personally made and approve the management plan that is documented in note by myself or TOM.: Yes
ED Attending Note:
Seen with PA examined independently
Used an edible passed out, grossly nonfocal exam
Discharge Plan
Departure
Patient Disposition: Admit
Date of Disposition: 09/19/24
Time of Disposition: 01:17
Presentation/result/management discussed w/ accepting MD/DO: Hospitalist
Discharge Problem:
Ambulatory dysfunction
Prescriptions:
No Action
rosuvastatin 10 MG tablet
10 mg PO QPM
pantoprazole 40 MG tablet,delayed release (DR/EC)
40 mg PO DAILY
magnesium oxide 500 mg magnesium Tablet
500 mg PO DAILY Qty: 0 0RF
thiamine mononitrate (vit B1) 100 mg Tablet
100 mg PO BID Qty: 30 0RF
cyanocobalamin (vitamin B-12) 1,000 mcg capsule
1,000 mcg PO DAILY Qty: 30 0RF
Referrals:
Katie Hancock DO [Family Provider, Family Practice]
Interventions
Interventions:
*Risk Screen - Suicide Last Done: 09/18/24 21:19
*General Assessment Last Done: 09/18/24 21:19
*Neglect/Abuse Screening Last Done: 09/18/24 21:19
*ED- Fall Risk Assessment Last Done: 09/18/24 21:56
ED- Cardiac Assessment Last Done: 09/18/24 22:00
ED- Neurological Assessment Last Done: 09/18/24 21:18
ED-Psychological Assessment Last Done: 09/18/24 21:18
ED- Pulmonary Assessment Last Done: 09/18/24 21:55
Discharge Date and Time
Print Language: SLOVENIAN
[2024-09-18 21:59] LABS: Urine Character Clear (Clear)
[2024-09-18 22:02] LABS: Hematocrit 35.3 % (39.0-52.0); Hemoglobin 12.4 g/dL (13.0-18.0); Mean Corp Hgb Conc. 35.1 g/dL (33.0-37.0); Mean Corpuscular Volume 90.1 fL (80.0-94.0); Nucleated Red Blood Cells % 0 % (-); Platelet Count 181 10^3/uL (130-400); Red Cell Dist. Width 11.6 % (11.5-14.5)
[2024-09-18 22:17] LABS: ALT (SGPT) 16 U/L (0-50); AST (SGOT) 27 U/L (17-59); Albumin 4.9 g/dl (3.5-5.0); Alkaline Phosphatase 117 U/L (38-126); Blood Urea Nitrogen 14 mg/dl (9-20); Calcium 10.1 mg/dl (8.4-10.2); Carbon Dioxide 28 mmol/L (22-30); Chloride 102 mmol/L (98-107); Glucose 108 mg/dl (70-99); Magnesium 2.3 mg/dl (1.6-2.3); Potassium 4.3 mmol/L (3.5-5.1); Sodium 139 mmol/L (135-145); Total Protein 8.1 g/dl (6.3-8.2); eGFR > 60.00
[2024-09-18 22:23] LABS: Troponin I < 0.012 ng/ml
[2024-09-18 22:48] LABS: Urine Red Blood Cell 0-2 /HPF (0-2); Urine White Cell 0-2 /HPF (0-5)
[2024-09-18 23:34] VITALS: BP 157/108
[2024-09-19] VITALS (8 sets, daily range): BP systolic 147–155; BP diastolic 72–91; PULSE 68–78; BMI 24.8
--- NOTE | 2024-09-19 03:18 | HPS.HSE ---
Family Physician
-
Family Physician: Katie Hancock
Chief Complaint
-
Found Down
History of Present Illness
Patient is a 68y M with PMH significant for alcohol use disorder, hypertension and DM-II who presents to ED for evaluation after her was reportedly found down by his this evening. History obtained from patient, ED staff and EMS report.
Unable to reach for additional details. Reportedly, patient was found on the floor at home by his who was concerned that he was intoxicated. Patient denies fall or injury - but cannot explain why he was on the floor. He informed
EMS and ED staff that he had taken a THC edible this evening.
Patient was admitted here 08/09 - 08/12 for alcohol withdrawal symptoms. He tells me that he did return to drinking after that admission - but also states that his last drink was '6 or 8 weeks ago'.
Patient states that his is very 'stressed out' and 'just wanted me out of the house' so he called 911.
In the ED, patient complains of constipation. He manually disimpacted himself in the ED with good results.
He denies any issues with gait instability and during my visit he ambulated to the bathroom using a walker with no apparent imbalance or issue.
Medical History
Past Medical History
Past Medical History: Reports Other
Additional Past Medical History:
DM-II
Alcohol Use Disorder
Hypertension
GERD
Hepatitis C
Past Surgical History: Reports Other
Additional Past Surgical History:
T&A
Social History
Tobacco: Former Smoker
Alcohol: Former (Patient reports no alcohol in 5-8 weeks. Accuracy of his history is suspect.)
Drug: Marijuana
Personal: Partner
Living: With Family
Family History
Family History: Not pertinent
Allergies / Home Medications
Allergies reflects when Allergies were last updated in [employer].
Home Medications with original date entered in [employer]
Allergy/Medication List:
Allergies
Allergy/AdvReac Type Severity Reaction Status Date / Time
Penicillins Allergy Swelling Verified 09/18/24 21:16
Home Medications
pantoprazole 40 mg tablet,delayed release 40 mg PO DAILY Gastrointestinal Issue 11/30/20
rosuvastatin 10 mg tablet 10 mg PO QPM High Cholesterol 11/30/20
cyanocobalamin (vitamin B-12) 1,000 mcg capsule 1,000 mcg PO DAILY B 12 Def #30 caps 08/12/24
magnesium oxide 500 mg PO DAILY Electrolyte Repletion #0 tabs 08/12/24
thiamine mononitrate (vit B1) 100 mg tablet 100 mg PO BID Supplement #30 tabs 08/12/24
Review of Systems
-
History Source: Patient
A 12 point ROS was completed and negative except as noted: Yes
Constitutional: Denies Fever or Chills
Respiratory: Denies Cough or Trouble Breathing
Cardiac: Denies Chest Pain or Palpitations
Abdomen/GI: Reports Constipated; Denies Abdominal Pain, Nausea, Vomiting or Diarrhea
: Denies Dysuria or Frequency
Musculoskeletal: Denies Joint Pain or Edema
Neurological: Denies Dizzy or Headache
Psych: Denies Depression or Anxiety
Physical Exam
Vital Signs
Vital Signs
Temp Pulse Resp BP Pulse Ox
98.1 F 79 18 157/108 96
09/18/24 21:04 09/19/24 00:00 09/19/24 00:00 09/18/24 23:34 09/18/24 21:35
Physical Exam
General: Other (68y M in no acute distress.)
HEENT: Moist mucous membranes and PERRLA
Respiratory: Clear; No Wheezes, Rales or Rhonchi
Cardiac: S1/S2; No Murmur
GI: Soft, Non Tender, Non Distended and Normal Bowel Sounds
Musculoskeletal: No Clubbing, No Cyanosis and No Edema
Neuro: AO x 3, Nonfocal/grossly intact and Other (Mild resting tremor.)
Laboratory Results
-
09/18/24 21:43
09/18/24 21:43
Laboratory Results
Total Bilirubin 1.0 mg/dl (0.2-1.3) 09/18/24 21:43
AST 27 U/L (17-59) 09/18/24 21:43
ALT 16 U/L (0-50) 09/18/24 21:43
Alkaline Phosphatase 117 U/L (38-126) 09/18/24 21:43
Troponin I < 0.012 ng/ml 09/18/24 21:43
Impression/Plan
-
A/P: Patient is a 68y M with PMH significant for alcohol use disorder hypertension and DM-II who presents to ED after being found down at home.
Found Down
- Observe overnight for further evaluation and treatment.
- Unclear how patient ended up on the floor - ? intoxication (THC > EtOH), fall, syncope, etc.
- Monitor on telemetry overnight.
- PT eval in AM (appears steady on his feet in the ED).
- Follow for any new / recurrent symptoms.
- Evaluation thus far including imaging, labs, etc is unremarkable.
Alcohol Use Disorder
B12 Deficiency
- Unclear when his last EtOH intake was.
- History does not match known timing as patient states he drank after most recent hospital stay - but cites last drink as prior to that hospitalization.
- ? confabulation / chronic alcohol issue impacting cognition, gait, etc.
- Monitor MSAS given unknown last intake.
- Continue vitamin replacement / supplementation.
Constipation
- Bowel regimen. Monitor for effects.
Benign Hypertension
- Stable. Not on any antihypertensive medications at present.
DM-II
- Stable. Not on any DM-II medications at present.
- Jardiance / metformin discontinued at last hospitalization.
- Follow glucose and cover with SSI as needed.
GERD
- Stable. Continue PPI.
DVT Prophylaxis: SCDs
Code Status: Full
[2024-09-19 08:02] LABS: Glucose - Point of Care 130 mg/dl (70-99)
[2024-09-19] MEDS: VITAMIN B1 100 MG PO (08:06)
[2024-09-19] MEDS: VITAMIN B-12 1000 MCG PO (08:06)
[2024-09-19] MEDS: PROTONIX 40 MG PO (08:06)
[2024-09-19] MEDS: MIRALAX 17 GRAMS PO (08:06)
[2024-09-19] MEDS: COLACE 100 MG PO (08:07)
[2024-09-19] MEDS: FOLVITE 1 MG PO (08:07)
[2024-09-19] MEDS: MAGNESIUM OXIDE 500 MG PO (08:14)
[2024-09-19 08:25] LABS: Hematocrit 37.9 % (39.0-52.0); Hemoglobin 12.9 g/dL (13.0-18.0); Mean Corp Hgb Conc. 34.0 g/dL (33.0-37.0); Mean Corpuscular Volume 91.8 fL (80.0-94.0); Platelet Count 209 10^3/uL (130-400); Red Cell Dist. Width 11.6 % (11.5-14.5)
[2024-09-19 08:52] LABS: ALT (SGPT) 16 U/L (0-50); AST (SGOT) 34 U/L (17-59); Albumin 4.8 g/dl (3.5-5.0); Alkaline Phosphatase 116 U/L (38-126); Blood Urea Nitrogen 13 mg/dl (9-20); Calcium 10.1 mg/dl (8.4-10.2); Carbon Dioxide 27 mmol/L (22-30); Chloride 104 mmol/L (98-107); Estimated Creatinine Clearance 55 ml/min; Glucose 83 mg/dl (70-99); Magnesium 2.2 mg/dl (1.6-2.3); Potassium 3.9 mmol/L (3.5-5.1); Sodium 142 mmol/L (135-145); Total Protein 7.8 g/dl (6.3-8.2); eGFR > 60.00
[2024-09-19 09:10] LABS: Glycohemoglobin (HgbA1c) 5.7 % (4.0-5.6)
--- NOTE | 2024-09-19 10:23 | CM ---
Met with patient. Discussed substance abuse disorder consult. He says he goes to AA and does not want referral to [facility]. He has the information from past admission. He said he used the THC at night when he takes Klonopin and Trazadone and that is
why he thinks it affected him the way it did. he lives with partner in one level home with 21 steps to enter. No DME or history of VNA.
Actual address is [address] [place] [id number]. He does not anticipate any needs at discharge.
Reviewed Observation letter with him.
ON chart
PLAN: home no needs.
--- NOTE | 2024-09-19 11:19 | W.PN.HOSP.TC ---
Today's Communication/Plan
-
OK for DC today after repeat PT eval
Assessment / Plan
Assessment / Plan
Patient is a 68y M with PMH significant for alcohol use disorder hypertension and DM-II who presents to ED after being found down at home. Patient reports having issues with constipation prior and he had eaten a THC edible. Differential
includes vasovagal syncope versus effects from edible.
Found Down
- patient feeling well this morning
- did well with PT - will return to trial stairs
- OK for DC, patient knows to avoid edibles in future
- constipation now treated
Alcohol Use Disorder
B12 Deficiency
- alcohol not detected in ER
- continue thiamine/folate
- patient states he goes to AA
Constipation
- Bowel regimen. Monitor for effects.
Benign Hypertension
- Stable. Not on any antihypertensive medications at present.
DM-II
- Stable. Not on any DM-II medications at present.
- Jardiance / metformin discontinued at last hospitalization.
- Follow glucose and cover with SSI as needed.
GERD
- Stable. Continue PPI.
DVT Prophylaxis: SCDs
Code Status: Full
Anticipated Discharge: Today
Subjective/Interval History
-
Date of Service: September 19, 2024
feeling well now
no longer constipated
not dizzy when standing
Objective Data
-
Labs:
Laboratory Results
09/19/24
07:32
WBC 8.2
Hgb 12.9 L
Hct 37.9 L
Plt Count 209
Sodium 142
Potassium 3.9
Chloride 104
Carbon Dioxide 27
BUN 13
Creatinine 1.2
Glucose 83
Calcium 10.1
Total Bilirubin 1.1
AST 34
ALT 16
Alkaline Phosphatase 116
Vital Signs:
Vital Signs
Temp Pulse Resp BP Pulse Ox
97.4 F 81 18 155/84 98
09/19/24 07:00 09/19/24 07:00 09/19/24 07:00 09/19/24 07:00 09/19/24 07:00
Review of Systems
-
History Source: Patient
All other systems: Reviewed and negative
Physical Exam
-
General: No Apparent Distress
HEENT: PERRLA
Respiratory: Clear to Auscultation; Negative Wheezes
Cardiac: Regular Rhythm and S1/S2
GI: Soft and Nontender
Musculoskeletal: No Edema
Skin: Warm and Dry; Negative Rash
Neuro: AO x 3
Psych: Calm
Data Reviewed
-
Diagnostic Radiology: Report Reviewed by me
Labs: Labs Reviewed by me
--- NOTE | 2024-09-19 11:26 | W.DS.TRANS ---
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
-
Discharge Instructions:
Discharge Diagnosis/Procedures THC intoxication versus vasovagal syncope
Diet Regular
Activity As tolerated
Driving Restrictions As prior to admission
Bathing Restrictions None
Other Services VN
Instructions:
Stand-Alone Forms:
Changes to Home Medications: Yes
Discharge Medications:
DC Medications w/original date entered in [employer]
pantoprazole 40 mg tablet,delayed release 40 mg PO DAILY Gastrointestinal Issue 11/30/20
rosuvastatin 10 mg tablet 10 mg PO QPM High Cholesterol 11/30/20
cyanocobalamin (vitamin B-12) 1,000 mcg capsule 1,000 mcg PO DAILY B 12 Def #30 caps 08/12/24
magnesium oxide 500 mg PO DAILY Electrolyte Repletion #0 tabs 08/12/24
thiamine mononitrate (vit B1) 100 mg tablet 100 mg PO BID Supplement #30 tabs 08/12/24
polyethylene glycol 3350 17 gram oral powder packet 17 g PO DAILY PRN Constipation #30 ea 09/19/24
tirzepatide 2.5 mg/0.5 mL subcutaneous pen injector (Mounjaro) mg SC WEEKLY Diabetes 09/19/24
Home Medication Changes
addition of Miralax PRN
Pending Results: No
[2024-09-19 12:37] LABS: Vitamin B12 > 1000 pg/ml (239-931)
--- NOTE | 2024-09-19 12:43 | W.DCSUMMARY ---
Discharge Summary
Discharge Data
Date of Admission: 09/19/24
Date of Discharge: 09/19/24
-
Pending Results: No
Hospital Course
Discharging Physician : Dr. Chitra Pelaez
Disposition :Home
Primary care physician : Dr. Katie Hancock
Principal Discharge diagnosis : THC intoxication versus vasovagal syncope
Hospital Course :
Mr. Evan Ramey is a 68 yo man with past medical history significant for alcohol use disorder, hypertension, and DM-II who presents to ED after being found down at home. Patient reports having issues with constipation prior and he had eaten a THC
edible.
Triage vitals stable. Labs without leukocytosis, normal renal function. Head CT and Cervical Spine CT without acute abnormality. Patient was able to have a BM in ER and in the AM. He was monitored overnight without acute events. He worked well
with PT. Differential includes vasovagal syncope versus intoxication from THC edible.
Patient told to avoid edibles in future.
He is also told to discuss Mounjaro with outpatient physician if constipation becomes a chronic issue. He is prescribed Miralax as needed.
Time spent on discharge was 32 minutes.
Important imaging findings :
HEAD CT 09/18/24
IMPRESSION:
No acute intracranial abnormality noted.
CERVICAL SPINE CT 09/18/24
IMPRESSION:
No acute fracture or subluxation.
Procedure findings :
Discharge Plan
-
Patient Disposition: Home (Routine Discharge)
Discharge Diagnosis/Procedures: THC intoxication versus vasovagal syncope
Diet: Regular
Activity: As tolerated
Driving Restrictions: As prior to admission
Bathing Restrictions: None
Other Services: VN
Referrals:
Katie Hancock, [Family Provider, Family Practice] - in less than 1 week
Additional Discharge Medication Instructions: If constipation becomes a chronic issue with you then speak to your outpatient provider about whether or not to continue Mounjaro
Prescriptions:
New
polyethylene glycol 3350 17 gram Powder In Packet
17 g PO DAILY PRN (Reason: Constipation) Qty: 30 0RF
Continued
rosuvastatin 10 MG tablet
10 mg PO QPM
pantoprazole 40 MG tablet,delayed release (DR/EC)
40 mg PO DAILY
magnesium oxide 500 mg magnesium Tablet
500 mg PO DAILY Qty: 0 0RF
thiamine mononitrate (vit B1) 100 mg Tablet
100 mg PO BID Qty: 30 0RF
cyanocobalamin (vitamin B-12) 1,000 mcg capsule
1,000 mcg PO DAILY Qty: 30 0RF
Mounjaro 2.5 mg/0.5 mL Pen Injector
SC WEEKLY
Discharge Orders:
Discharge Patient (As Directed); Ordered 09/19/24
Ordered By: Chitra Pelaez
Discharge Date and Time
Print Language: GREENLANDIC
[2024-09-19 12:59] LABS: Glucose - Point of Care 94 mg/dl (70-99)
== END 2024-09-19 17:28 | disposition home or self-care (01) ==
LOC: 4 WEST ACU 03:27
PROVIDERS: Physician Assistant; ADMITTING PHYSICIAN Hospitalist; ATTENDING PHYSICIAN Student in an Organized Health Care Education/Training Program; EMERGENCY PHYSICIAN Emergency Medicine; FAMILY PHYSICIAN Family Medicine
DX: R26.2 Difficulty in walking, not elsewhere classified (principal); R53.83 Other fatigue; R53.1 Weakness; K59.00 Constipation, unspecified; F12.929 Cannabis use, unspecified with intoxication, unspecified; E11.9 Type 2 diabetes mellitus without complications; E53.8 Deficiency of other specified B group vitamins; R94.31 Abnormal electrocardiogram [ECG] [EKG]; M50.31 Other cervical disc degeneration, high cervical region; F10.10 Alcohol abuse, uncomplicated; E78.5 Hyperlipidemia, unspecified; E78.00 Pure hypercholesterolemia, unspecified; I10 Essential (primary) hypertension; K21.9 Gastro-esophageal reflux disease without esophagitis; Z87.891 Personal history of nicotine dependence; Z88.0 Allergy status to penicillin
CPT/HCPCS: 70450; 72125; 80053; 81003; 81015; 82077; 82248; 82550; 82607; 82962; 83036; 83735; 84100; 84443; 84484; 85025; 85027; 93005; 97116; 97162; 97166; 99285; G0378